=== PATIENT | female | born 1960 | race Caucasian/White ===

== ENCOUNTER → 2017-02-20 | Day surgery (SDC) | payer BC ==
[~2017-02-20] MED LIST: LACTATED RINGERS 1,000 ML IV SCH
[2017-02-20 11:37] VITALS: RESP 16; TEMP 97.9
[2017-02-20 14:03] VITALS: BP 136/60; PULSE 61
[2017-02-20 14:47] LABS: Glucose,CSF 56 mg/dL (40-70)
[2017-02-20 15:02] LABS: ALT 34 U/L (9-52); AST 25 U/L (14-36)
[2017-02-20 15:06] LABS: Rheumatoid Factor, Qnt <9 IU/mL (<12)
[2017-02-20 18:04] LABS: Appearance,CSF Clear
[2017-02-20 19:01] LABS: Treponemal Ab Non-Reactive (Non-Reactive)
[2017-02-21 08:47] LABS: Lyme Antibodies Total(IgG/IgM) <0.01 (<0.90)
--- NOTE | 2017-02-21 13:15 | P.PCN ---
Date of Procedure: 02/20/17 Procedure(s) Performed: Procedure=1-lumbar puncture . Preoperative diagnoses= multiple sclerosis. Postoperative diagnosis= multiple sclerosis. Anesthesia= local lidocaine infiltration 1% 2 mL for skin and subcu infiltration. Condition= stable. Complications=none. Indication for the procedure= patient with a history of symptoms suggestive of multiple sclerosis and she was referred to have a lumbar puncture for diagnostic study procedure risk and benefits and alternatives discussed with the patient and she agreed with the preceding, Description of the procedure= patient in the procedure room sitting position and monitors applied, the back prepped with chlorhexidine 3, sterile technique , local infiltration of the skin and subcu interstitial with lidocaine 1% 2 mL, then 22-gauge quickie Needle advanced slowly at L4 5 interlaminar space, the cerebrospinal fluid was clear, and no heme no paresthesia, a total of 7 mL of clear cerebrospinal fluid collected in 4 different tubes, the needle removed, Band-Aid applied , patient tolerated the procedure well without any complications, and further management as per her neurologist
[2017-02-21 15:05] LABS: IgG Synthesis Rate 6.94 mg/day (0.00 - 3.00); Immunoglobulin G 858 mg/dL (700 - 1600)
[2017-02-21 16:21] LABS: Mis test requested (Non-blood) VDRL CSF
[2017-02-22 20:55] LABS: ANA w/Reflex to Titer NEGATIVE (NEGATIVE)
[2017-02-23 09:20] LABS: Lyme Specimen Source CSF
== END ==
LOC: EDSTATUS 11:15 → PROCWHC3 11:15
PROVIDERS: ATTEND Psychiatry & Neurology Neurology
DX: G35 Multiple sclerosis (principal)
CPT/HCPCS: 36415; 62270; 82040; 82042; 82164; 82784; 82945; 83873; 83916; 84157; 84439; 84443; 84450; 84460; 85613; 85730; 86038; 86225; 86235; 86431; 86592; 86618; 86780; 87476; 88108; 89050; 96361